=== PATIENT | female | born 1960 | race Caucasian/White ===

== ENCOUNTER 2019-05-16 17:13 | Emergency (ER) | payer BC ==
--- NOTE | 2019-05-16 17:18 | UC ---
Throat Pain/Nasal Brad HPI - HPI Summary HPI Summary: Patient is a 58yo female presenting with sinus pressure and fatigue "for weeks. " Patient states she saw her pcp for similar symptoms on 04/19/19 and was told to increase fluids and use andrzej pot. Patient states, despite doing this, her symptoms have worsened and she now has PND, dark yellow nasal discharge, and worsening facial pressure. Denies cough, ear pain, sore throat. Denies fever and chills. States she has taken sudafed which provided some relief. - History of Current Complaint Stated Complaint: SINUS ISSUE Hx Obtained From: Patient Hx Last Menstrual Period: 12/2011 Onset/Duration: Gradual Onset, Lasting Weeks Related History: Seasonal Allergies - Allergies/Home Medications Allergies/Adverse Reactions: Allergies Allergy/AdvReac Type Severity Reaction Status Date / Time clarithromycin [From Biaxin] Allergy Nausea Verified 05/16/19 17:26 Sulfa (Sulfonamide AdvReac gi upset, Verified 05/16/19 17:26 Antibiotics) nausea larium AdvReac Severe Mental Uncoded 05/16/19 17:26 Effects Home Medications: Home Medications Azelastine/Fluticasone GERMAINE(NF [Dymista(NF)] 1 spray BOTH NARES 05/16/19 [History ] Estradiol 0.025 MG PATCH (NF) 1 patch TRANSDERM 05/16/19 [History] LevoCETirizine TAB (NF) [Xyzal TAB (NF)] 5 mg PO DAILY 05/16/19 [History Confirmed 05/16/19] Levothyroxine TAB* [Synthroid TAB*] 50 mcg PO 05/16/19 [History] Methylphenidate TAB* [Ritalin TAB*] 10 - 20 mg PO DAILY 05/16/19 [History Confirmed 05/16/19] Progesterone, Micronized [Progesterone] 100 mg PO BEDTIME 05/16/19 [History Confirmed 05/16/19] Pseudoephedrine TAB* [Sudafed TAB*] 30 mg PO PRN 05/16/19 [History] ValACYclovir (*) [Valtrex 500 mg (*)] 500 mg PO DAILY PRN 05/16/19 [History Confirmed 05/16/19] PMH/Surg Hx/FS Hx/Imm Hx - Surgical History Surgical History: Yes Surgery Procedure, Year, and Place: Right knee 1988 lateral release and cleaned up bone fragments. 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 Negative: Fever, Chills ENT: Positive: Nasal Discharge - dark yellow, Sinus Congestion, Sinus Pain/ Tenderness. Negative: Sore Throat, Ear Ache Respiratory: Positive: Negative Cardiovascular: Positive: Negative Gastrointestinal: Positive: Negative Musculoskeletal: Positive: Negative Neurological: Positive: Negative Physical Exam Triage Information Reviewed: Yes Appearance: Well-Appearing, No Pain Distress, Well-Nourished Vital Signs: Vital Signs (72 hours) 05/16/19 17:20 Temperature 98.4 F Pulse Rate 53 Respiratory 16 Rate Blood Pressure 106/46 (mmHg) O2 Sat by Pulse 100 Oximetry Vital Signs Reviewed: Yes Eyes: Positive: Conjunctiva Clear ENT: Positive: Hearing grossly normal, Pharynx normal, Nasal congestion, Nasal drainage - PND, TMs normal, Sinus tenderness - maxillary, Uvula midline. Negative: Pharyngeal erythema, Tonsillar swelling, Tonsillar exudate Neck exam: Normal Neck: Positive: Supple, Nontender, No Lymphadenopathy Respiratory Exam: Normal Respiratory: Positive: Lungs clear, Normal breath sounds, No respiratory distress Cardiovascular Exam: Normal Cardiovascular: Positive: RRR Neurological: Positive: Alert Psychological: Positive: Age Appropriate Behavior Skin Exam: Normal Throat Pain/Nasal Course/Dx - Course Course Of Treatment: I treated patient with augmentin for sinusitis and instructed to continue with symptomatic treatment as well. Patient states she has an appt with ENT scheduled for May 27 and I instructed her to attend that appt if still symptomatic after finishing augmentin. Patient voiced understanding and agreed with treatment plan. - Differential Dx/Diagnosis Differential Diagnosis/HQI/PQRI: Sinusitis, URI Provider Diagnosis: Rhinosinusitis Discharge ED - Sign-Out/Discharge Documenting (check all that apply): Patient Departure All imaging exams completed and their final reports reviewed: No Studies - Discharge Plan Condition: Stable Disposition: HOME Prescriptions: Amoxicillin/Clavulanate TAB* [Augmentin TAB 875*] 875 mg PO BID #14 tab Fluconazole 150 MG TAB* [Diflucan 150 MG TAB*] 150 mg PO ONCE PRN #1 tablet PRN Reason: Itching Patient Education Materials: Sinusitis (ED) Referrals: Devora Parra MD [Primary Care Provider] - If Needed Additional Instructions: As discussed, take Augmentin for the treatment of your bacterial sinusitis. You may continue use of Sudafed as directed. You may also use nasal saline spray or Flonase for symptomatic relief. Get plenty of rest and fluids. Follow up at your ENT appointment on if your symptoms do not resolve after course of antibiotics. - Billing Disposition and Condition Condition: STABLE Disposition: Home
[2019-05-16 17:25] VITALS: BP 106/46
== END 2019-05-16 18:11 | disposition home or self-care (01) ==
LOC: UCEAST 17:13
DX: J32.9 Chronic sinusitis, unspecified (principal); Z88.1 Allergy status to other antibiotic agents; Z88.2 Allergy status to sulfonamides; Z91.09 Other allergy status, other than to drugs and biological substances; Z87.891 Personal history of nicotine dependence
CPT/HCPCS: 99212; G0463